=== PATIENT | female | born 1995 | race Caucasian/White ===

== ENCOUNTER 2024-02-14 08:18 | Outpatient (CLI) | payer OTHER, SELFPAY | END 2024-02-14 08:19 | disposition home or self-care (01) | PROVIDERS: PCP Nurse Practitioner Family; Visit Provider Nurse Practitioner Family | DX: Z13.220 Encounter for screening for lipoid disorders (principal); Z13.1 Encounter for screening for diabetes mellitus | CPT/HCPCS: 80061; 82947 ==

== ENCOUNTER 2025-02-26 09:05 | Outpatient (CLI) | payer OTHER, SELFPAY ==
[2025-02-26 14:45] LABS: Clue Cells No Clue Cells Seen (None Seen); Trichomonas No Trichomonas Seen (None Seen); Yeast No Yeast Seen (None Seen)
== END 2025-02-26 09:06 | disposition home or self-care (01) ==
LOC: KYNREF 09:05
PROVIDERS: PCP Nurse Practitioner Family; Visit Provider Nurse Practitioner Family
DX: N89.8 Other specified noninflammatory disorders of vagina (principal)
CPT/HCPCS: 87210

== ENCOUNTER 2025-03-10 13:35 | Outpatient (CLI) | payer OTHER, SELFPAY ==
--- NOTE | 2025-03-10 14:00 | CRLHL7_ITS ---
For Patients: As a result of the Cures Act, medical imaging exams and procedure reports are released immediately into your electronic medical record. You may view this report before your referring provider. If you have questions, please contact your health care provider. OB ULTRASOUND INDICATION: Dating. TECHNIQUE: Real time grayscale imaging of the fetus was performed. Transvaginal imaging performed to better evaluate the endometrial stripe and ovaries. LMP: 01/13/2025. NEERAJ by LMP: 10/20/2025. GA: 8 w, 0 d. Previous US: No. CRL: 1.1 cm. 7 w 1 d. NEERAJ: 10/26/2025. FHR: 135 BPM. Gestational sac: 2.2 cm. Appears within normal limits. Yolk sac: 3.3 mm. Appears within normal limits. Right ovary: N/V. Left ovary: 4.0 x 1.9 x 2.6 cm. CL. IMPRESSION: 1. Single living intrauterine measuring 7 weeks 1 day and sonographic due date 10/26/2025. 2. Subchorionic hemorrhage measures 1.8 x 0.8 x 0.7 cm. Jose Boswell M.D. Diagnostic Radiologist [email or web address] LAINA/[email or web address]/Dictated by: Jose Boswell MD @ 03/10/2025 3:48:00 PM (Electronically Signed)
== END 2025-03-10 13:36 | disposition home or self-care (01) ==
LOC: US 13:36
PROVIDERS: PCP Nurse Practitioner Family; Visit Provider Advanced Practice Midwife
DX: Z34.91 Encounter for supervision of normal pregnancy, unspecified, first trimester (principal); O20.9 Hemorrhage in early pregnancy, unspecified; Z3A.08 8 weeks gestation of pregnancy; Z34.01 Encounter for supervision of normal first pregnancy, first trimester; Z67.10 Type A blood, Rh positive
CPT/HCPCS: 76817; 83021; 84443; 86592; 86703; 86704; 86706; 86762; 86787; 86803; 86850; 86900; 86901; 87086; 87340

== ENCOUNTER 2025-03-10 14:55 | Outpatient (CLI) | payer OTHER, SELFPAY | END 2025-03-10 14:56 | disposition home or self-care (01) | PROVIDERS: PCP Nurse Practitioner Family; Visit Provider Advanced Practice Midwife | DX: Z34.01 Encounter for supervision of normal first pregnancy, first trimester (principal); Z67.10 Type A blood, Rh positive | CPT/HCPCS: 76817; 83020; 83021; 84443; 85660; 86592; 86703; 86704; 86706; 86762; 86787; 86803; 86850; 86900; 86901; 87086; 87340 ==

== ENCOUNTER 2025-04-07 12:56 | Outpatient (CLI) | payer BC, SELFPAY | END 2025-04-07 12:57 | disposition home or self-care (01) | LOC: NFLDREF 04-09 17:31 | PROVIDERS: PCP Nurse Practitioner Family; Referring Provider Nurse Practitioner Family; Visit Provider Advanced Practice Midwife | DX: Z34.01 Encounter for supervision of normal first pregnancy, first trimester (principal) | CPT/HCPCS: 87491; 87591 ==

== ENCOUNTER 2025-06-01 15:34 | Outpatient (CLI) | payer BC, SELFPAY ==
--- NOTE | 2025-06-01 15:45 | CRLHL7_ITS ---
For Patients: As a result of the 21st Century Cures Act, medical imaging exams and procedure reports are released immediately into your electronic medical record. You may view this report before your referring provider. If you have questions, please contact your health care provider. OB ULTRASOUND ANATOMY TRANSABDOMINAL LMP: -. NEERAJ by LMP: -. NEERAJ by US: 10/26/2025. GA: 19 w, 0 d. INDICATION: Supervision of normal . TECHNIQUE: Real time madrid scale imaging of the fetus was performed. Evaluate anatomy. Transabdominal imaging performed. FINDINGS: position: Oblique and transverse, Breech, kimberli breech, multiple positions. Head to maternal left. Cervix: Visualized. Technique: Transabdominal. Length of closed cervix: 3.9 cm. Placenta/cord: Fundal, posterior. Technique: Transabdominal. Placenta tip to internal OS: 9.8 cm. Umbilical Cord: 3-vessel cord. Placenta insertion: Marginal (within 2 cm of placenta edge). Amniotic Fluid: 5.3cm SDP (greater than/equal to: 2- less than 8 cm). SURVEY: Calvarium/Spine: Cerebellum: 2.0 cm, 20 w 0 d. Cisterna Magna: 2.8 mm. Nuchal Fold: 5.1 mm. Lateral Ventricle: 6.0 mm. CSP: Yes. Midline Falx: Yes. Choroid Plexus: Yes. Spine: Yes. See comment. Abdomen: Stomach: Yes. Abd Cord Insertion: Yes. Urinary Bladder: Yes. See comment. Kidneys: Yes. Diaphragm: Yes. Face: Nose/lips: Yes. Orbital view: Yes. Profile: See comment. Limbs: Upper Extremities: Yes. Lower Extremities: Yes. Hands: Yes. Feet: Yes. Vascular: 4-Chamber Heart: Yes. LVOT: Yes. RVOT: Yes. 3VV: Yes. See comment. 3VTV: Yes. See comment. BPD: 4.6 cm. 20 w, 0 d, 86 percent. HC: 16.6 cm. 19 w, 2 d, 59 percent. AC: 15.4 cm. 20 w, 4 d, 90 percent. FL: 2.9 cm. 19 w, 0 d, 43 percent. FL/AC ratio: 18.91 percent. HC/AC ratio: 1.08. heart rate: 135 bpm. age by this US: 19 w, 5 d. NEERAJ by this US: 10/21/2025. EFW: 314.94 g. Weight: 0 lbs, 11 oz. Percentile by NEERAJ: 89 percent. IMPRESSION: 1. Concordance of clinical and sonographic dating. 2. Marginal cord insertion into the placenta located 1.4 cm from the placental edge. 3. Incomplete visualization of the spine, heart and profile due to position. Unable to obtain images of the umbilical cord and bladder. Level 2 ultrasound recommended. Jose Boswell M.D. Diagnostic Radiologist [email or web address] SP/Dictated by: Jose Boswell MD @ 06/01/2025 7:12:00 PM (Electronically Signed)
== END 2025-06-01 15:35 | disposition home or self-care (01) ==
LOC: US 15:35
PROVIDERS: PCP Nurse Practitioner Family; Visit Provider Advanced Practice Midwife
DX: O43.192 Other malformation of placenta, second trimester (principal); Z3A.19 19 weeks gestation of pregnancy
CPT/HCPCS: 76805

== ENCOUNTER 2025-06-19 13:56 | Outpatient (CLI) | payer BC, SELFPAY ==
--- NOTE | 2025-06-19 14:00 | CRLHL7_ITS ---
For Patients: As a result of the Century Cures Act, medical imaging exams and procedure reports are released immediately into your electronic medical record. You may view this report before your referring provider. If you have questions, please contact your health care provider. OB ULTRASOUND FOLLOW-UP MISSING VIEWS, TRANSABDOMINAL NEERAJ by US: 10/26/2025. GA: 21 w, 4 d. Single. Comparison: 06/01/2025, 03/10/2025. INDICATION: Follow-up missing anatomy views. TECHNIQUE: Real time madrid scale imaging of the fetus was performed. Transabdominal imaging performed. CERVIX: Not visualized. POSITIONING: Vertex, multiple. AMNIOTIC FLUID: 3.9 cm SDP (N: greater than 2 x 1 cm) PLACENTA: Technique: Transabdominal. PLACENTA POSITION: Posterior. DOPPLER: heart rate: 139 bpm. IMPRESSION: Normal spine, three-vessel view, three-vessel trachea view, bladder, three-vessel cord and profile. Jose Boswell M.D. Diagnostic Radiologist [email or web address] SP/Dictated by: Jose Boswell MD @ 06/19/2025 4:34:00 PM (Electronically Signed)
== END 2025-06-19 13:57 | disposition home or self-care (01) ==
LOC: US 13:56
PROVIDERS: PCP Nurse Practitioner Family; Visit Provider Physician Assistant
DX: Z34.92 Encounter for supervision of normal pregnancy, unspecified, second trimester (principal); Z3A.21 21 weeks gestation of pregnancy
CPT/HCPCS: 76816

== ENCOUNTER 2025-08-10 13:30 | Outpatient (CLI) | payer BC, SELFPAY | END 2025-08-10 13:31 | disposition home or self-care (01) | LOC: NFLDREF 08-14 10:35 | PROVIDERS: PCP Nurse Practitioner Family; Referring Provider Nurse Practitioner Family; Visit Provider Physician Assistant | DX: Z34.03 Encounter for supervision of normal first pregnancy, third trimester (principal) | CPT/HCPCS: 86592 ==

== ENCOUNTER 2025-09-15 09:56 | Outpatient (CLI) | payer BC, SELFPAY ==
--- NOTE | 2025-09-15 10:15 | CRLHL7_ITS ---
For Patients: As a result of the Century Cures Act, medical imaging exams and procedure reports are released immediately into your electronic medical record. You may view this report before your referring provider. If you have questions, please contact your health care provider. INDICATION: Marginal cord insertion TECHNIQUE: Limited transabdominal two-dimensional madrid-scale ultrasound examination. COMPARISON: 06/19/2025, 06/01/2025 and 03/10/2025 FINDINGS: There is a living fetus in cephalic lie with gestational age of 34 weeks 1 day by 1st trimester ultrasound dating and 36 weeks 1 day by today`s measurements. EDC based on 1st trimester ultrasound dating is 10/26/2025. BPD: 9.5 cm, 38 weeks 4 days Head circumference: 33.9 cm, 39 weeks Abdominal circumference: 30.1 cm, 34 weeks Femur length: 6.4 cm, 33 weeks HC/AC: 1.13 The weight is estimated at 2489 grams, the 60th percentile. The heart rate is measured at 122 beats per minute and the rhythm appears regular. The amniotic fluid volume is within normal limits with single deepest pocket of 7.3 cm. The placenta is fundal/posterior and superior to the cervical os. There is no evidence of previa. The umbilical cord insertion is not visualized today. IMPRESSION: 1. Living fetus in cephalic lie with gestational age of 34 weeks 1 day by 1st trimester ultrasound dating and 36 weeks 1 day by today`s measurements. EDC based on 1st trimester ultrasound dating is 10/26/2025. 2. weight estimated at 2489 grams, the 60th percentile. Dictated by Ashwin Valverde MD @ 09/18/2025 3:20:42 PM (Electronically Signed)
== END 2025-09-15 09:57 | disposition home or self-care (01) ==
LOC: US 09:57
PROVIDERS: PCP Nurse Practitioner Family; Visit Provider Obstetrics & Gynecology
DX: O36.8930 Maternal care for other specified fetal problems, third trimester, not applicable or unspecified (principal); Z3A.34 34 weeks gestation of pregnancy; Z36.89 Encounter for other specified antenatal screening
CPT/HCPCS: 76816